=== PATIENT | male | born 1965 | race Caucasian/White ===

== ENCOUNTER 2017-05-19 09:02 | Inpatient (IN) | payer OTHER ==
[~2017-05-19] VITALS: Ht 152.4 cm; Wt 89.8 kg
[2017-05-19] MEDS ORDERED: HYDR-3280 PO (09:14)
[2017-05-19] MEDS ORDERED: [UNRECOGNIZED DRUG - CODE] IV (09:14)
[2017-05-19] MEDS ORDERED: SODIUM CHLORIDE 0.9% 1,000 ML IV ONE (11:08)
[2017-05-19] MEDS ORDERED: MORPHINE SULFATE 4 MG/ML CPJ (NOT FOR IM USE) IV STA (11:08)
[2017-05-19] MEDS ORDERED: ONDANSETRON HCL 4MG/2ML VIAL IV STA (11:08)
[2017-05-19 11:30] LABS: BASOPHILS % 0.6 % (0.0-2.0); EOSINOPHILS % 1.2 % (0.0-5.0); HEMATOCRIT. 42.3 % (42.0-52.0); HEMOGLOBIN. 14.2 g/dL (14.0-18.0); LYMPHOCYTES % 30.2 % (20.0-50.0); MEAN CORPUSCULAR HEMOGLOBIN 27.7 pg (28.0-32.0); MEAN CORPUSCULAR VOLUME 82.5 fL (80.0-94.0); MEAN PLATELET VOLUME 7.6 fl (7.4-10.4); MONOCYTES % 8.3 % (2.0-8.0); NEUTROPHILS % 59.7 % (40.0-76.0); PLATELET 207 x1000/uL (130-400); RED BLOOD CELL COUNT 5.12 mill/uL (4.7-6.1); RED CELL DISTRIBUTION WIDTH 13.6 % (11.6-14.6)
[2017-05-19 11:38] LABS: PROTHROMBIN TIME 10.7 sec (9.4-11.6)
[2017-05-19 11:52] LABS: CARBON DIOXIDE 33 mEq/L (21-32); CHLORIDE 103 mEq/L (98-107)
[2017-05-19] MEDS ORDERED: MORPHINE SULFATE 10 MG/ML CPJ IV SCH (12:30)
[2017-05-19] MEDS ORDERED: IOHEXOL-300 100 ML BOTTLE ONE (13:09)
[2017-05-19 13:13] LABS: CLARITY URINE CLEAR (CLEAR); COLOR URINE YELLOW (YELLOW); GLUCOSE URINE NEGATIVE (NEGATIVE); KETONES URINE NEGATIVE (NEGATIVE); LEUKOCYTE ESTERASE URINE NEGATIVE (NEGATIVE); NITRITE URINE NEGATIVE (NEGATIVE); OCCULT BLOOD URINE NEGATIVE (NEGATIVE); PROTEIN URINE NEGATIVE (NEGATIVE); SPECIFIC GRAVITY URINE 1.012 (1.005-1.030); UROBILINOGEN URINE 0.2 E.U./dL (0.2-1.0)
[2017-05-19 14:44] LABS: *AMPHETAMINES SCREEN URINE NEGATIVE (NEGATIVE); *BARBITURATES SCREEN URINE NEGATIVE (NEGATIVE); *BENZODIAZEPINES SCREEN URINE NEGATIVE (NEGATIVE); *COCAINE SCREEN URINE NEGATIVE (NEGATIVE); CANNABINOID URINE SCREEN NEGATIVE (NEGATIVE); METHADONE URINE SCREEN NEGATIVE (NEGATIVE); OPIATES URINE SCREEN PRESUMTIVE POSITIVE (NEGATIVE); PHENCYCLIDINE URINE SCREEN NEGATIVE (NEGATIVE)
[2017-05-19] MEDS ORDERED: HYDROCODONE/ACETAMINOPHEN 5/325MG TABLET PO ONE (15:00)
[2017-05-19] MEDS ORDERED: MECLIZINE 25MG TABLET PO ONE (15:00)
[2017-05-19 20:30] VITALS: BP 119/70
[2017-05-19] MEDS: MORPHINE SULFATE 2 MG/ML CPJ (NOT FOR IM USE) IV PRN (22:09)
[2017-05-19] MEDS ORDERED: LORAZEPAM 1MG TABLET PO PRN (22:30)
[2017-05-19] MEDS ORDERED: CYCLOBENZAPRINE 10MG TABLET PO PRN (22:30)
[2017-05-20] VITALS: BP 118/70
[2017-05-20] MEDS: MORPHINE SULFATE 2 MG/ML CPJ (NOT FOR IM USE) IV PRN ×4 (02:00→15:10)
[2017-05-20 04:00] VITALS: BP 92/63
[2017-05-20] MEDS ORDERED: [UNRECOGNIZED DRUG - CODE] PO (06:45)
[2017-05-20] MEDS ORDERED: ACET160S PO (06:45)
[2017-05-20] MEDS ORDERED: LISI-604 PO (06:45)
[2017-05-20] MEDS ORDERED: CYCL5TAB PO (06:45)
[2017-05-20 08:00] VITALS: BP 114/75
[2017-05-20] MEDS: ONDANSETRON HCL 4MG/2ML VIAL IV PRN ×2 (08:47→12:48)
[2017-05-20] MEDS ORDERED: CARBIDOPA/LEVODOPA 25/250MG TABLET PO SCH (09:00)
[2017-05-20 12:00] VITALS: BP 126/81
[2017-05-20 16:00] VITALS: BP 139/82
[2017-05-20 16:17] VITALS: BP 133/82
== END 2017-05-20 17:05 | disposition home or self-care (01) | DRG 446 ==
LOC: ER 09:30 → 6WST 15:07 → ENRESERV 15:53
PROVIDERS: ADMIT Internal Medicine Nephrology; ATTEND Internal Medicine Nephrology
DX: K80.20 Calculus of gallbladder without cholecystitis without obstruction (principal); G20 Parkinson's disease; W19.XXXA Unspecified fall, initial encounter; R27.0 Ataxia, unspecified; M54.2 Cervicalgia; F32.9 Major depressive disorder, single episode, unspecified; G89.29 Other chronic pain; I10 Essential (primary) hypertension; K82.8 Other specified diseases of gallbladder; N20.0 Calculus of kidney; Y93.89 Activity, other specified; Y92.091 Bathroom in other non-institutional residence as the place of occurrence of the external cause; Y99.8 Other external cause status; Z85.820 Personal history of malignant melanoma of skin
CPT/HCPCS: 36415; 70450; 71010; 74177; 76705; 80053; 80305; 81003; 83690; 85025; 85610; 96361; 96374; 96375; 99285; J2270; J2405; J7030; J8597; Q9967